=== PATIENT | female | born 1990 | race Caucasian/White ===

== ENCOUNTER 2017-04-24 15:19 | Observation (INO) | payer BC, OTHER ==
[2017-04-24] MEDS ORDERED: RINGERS SOLUTION,LACTATED 500 ML IV ONE (16:00)
[2017-04-24] MEDS ORDERED: SOD FERRIC GLUC COMPLX/SUCROSE 125 MG in SODIUM CHLORIDE 0.9% 100 ML IV ONE (16:00)
[2017-04-24] MEDS ORDERED: RINGERS SOLUTION,LACTATED 1,000 ML IV ONE (16:15)
[2017-04-24] MEDS ORDERED: PREN1TAB89 PO (17:18)
== END 2017-04-24 18:30 | disposition home or self-care (01) ==
LOC: 4S 15:28
PROVIDERS: ADMIT Specialist; ATTEND Specialist
DX: Z34.92 Encounter for supervision of normal pregnancy, unspecified, second trimester (principal); Z3A.22 22 weeks gestation of pregnancy
CPT/HCPCS: 59025; 96365; G0378; J2916; J7050; J7120

== ENCOUNTER 2017-04-26 10:05 | Observation (INO) | payer BC, OTHER ==
[~2017-04-26] VITALS: Ht 160 cm; Wt 68.0 kg
[~2017-04-26 10:05] MED LIST: PREN1TAB89 PO
[2017-04-26] MEDS ORDERED: SODIUM CHLORIDE 0.9% 500 ML IV ONE (10:45)
[2017-04-26] MEDS ORDERED: SOD FERRIC GLUC COMPLX/SUCROSE 125 MG in SODIUM CHLORIDE 0.9% 100 ML IV ONE (10:45)
[2017-04-26 10:54] VITALS: BP 95/51
[2017-04-26] MEDS ORDERED: SODIUM CHLORIDE 0.9% 1,000 ML IV SCH (11:00)
[2017-08-19] MEDS ORDERED: HYDR-309 PO (07:42)
[2017-08-19] MEDS ORDERED: FERR-89 PO (07:43)
[2017-08-19] MEDS ORDERED: IBUP-2071 PO (07:44)
[2017-08-19] MEDS ORDERED: DSS100 PO (07:44)
== END 2017-04-26 13:00 | disposition home or self-care (01) ==
LOC: 4S 10:05
PROVIDERS: ADMIT Specialist; ATTEND Specialist
DX: O99.012 Anemia complicating pregnancy, second trimester (principal); Z3A.22 22 weeks gestation of pregnancy
CPT/HCPCS: 59025; 96365; G0378; J2916; J7030; J7050; 96360; J7040

== ENCOUNTER 2017-06-19 15:00 | Observation (INO) | payer BC, OTHER ==
[~2017-06-19] VITALS: Ht 160 cm; Wt 70.8 kg
[2017-06-19] MEDS ORDERED: RINGERS SOLUTION,LACTATED 500 ML IV ONE (17:15)
[2017-06-19] MEDS ORDERED: SOD FERRIC GLUC COMPLX/SUCROSE 125 MG in SODIUM CHLORIDE 0.9% 100 ML IV ONE (17:15)
[2017-06-19 17:29] VITALS: BP 108/57
[2017-06-19 17:57] LABS: BASOPHILS % (AUTO) 0.3 % (0.0-2.0); EOSINOPHILS % (AUTO) 1.8 % (1.0-6.0); HEMATOCRIT 28.7 % (36-46); HEMOGLOBIN 9.9 g/dL (12.0-16.0); LYMPHOCYTES # (AUTO) 1.8 K/uL (1.0-4.8); MEAN CORPUSCULAR HEMOGLOBIN 30.4 pg (26.0-34.0); MEAN CORPUSCULAR HGB CONC 34.5 G/dL (31.0-37.0); MEAN CORPUSCULAR VOLUME 88 fL (80-100); MONOCYTES # (AUTO) 0.5 K/uL (0.1-1.0); MONOCYTES % (AUTO) 6.3 % (2.0-9.0); NEUTROPHILS # (AUTO) 5.3 K/uL (1.8-7.7); NEUTROPHILS % (AUTO) 68.6 % (40.0-70.0); RED BLOOD CELL COUNT(AUTO) 3.25 MIL/uL (4.00-5.20); RED CELL DISTRIBUTION WIDTH 17.4 % (11.5-14.5); WHITE BLOOD COUNT (AUTO) 7.8 K/uL (4.5-11.0)
[2017-06-19 18:40] LABS: RBC MORPHOLOGY COMMENT ABNORMAL RBC MORPH
[2017-08-19] MEDS ORDERED: HYDR-309 PO (07:42)
[2017-08-19] MEDS ORDERED: FERR-89 PO (07:43)
[2017-08-19] MEDS ORDERED: DSS100 PO (07:44)
[2017-08-19] MEDS ORDERED: IBUP-2071 PO (07:44)
== END 2017-06-19 17:45 | disposition home or self-care (01) ==
LOC: 4S 15:00
PROVIDERS: ADMIT Specialist; ATTEND Specialist
DX: O42.913 Preterm premature rupture of membranes, unspecified as to length of time between rupture and onset of labor, third trimester (principal); Z3A.30 30 weeks gestation of pregnancy
CPT/HCPCS: 36415; 59025; 76811; 85025; 89060; G0378; J2916; J7050

== ENCOUNTER 2017-06-23 11:07 | Observation (INO) | payer BC, OTHER ==
[~2017-06-23] VITALS: Ht 160 cm; Wt 71.2 kg
[2017-06-23] MEDS ORDERED: SOD FERRIC GLUC COMPLX/SUCROSE 125 MG in SODIUM CHLORIDE 0.9% 100 ML IV ONE (11:15)
[2017-06-23 11:20] VITALS: BP 101/57
[2017-06-23] MEDS ORDERED: RINGERS SOLUTION,LACTATED 1,000 ML IV ONE ×2 (11:24→11:30)
[2017-08-19] MEDS ORDERED: HYDR-309 PO (07:42)
[2017-08-19] MEDS ORDERED: FERR-89 PO (07:43)
[2017-08-19] MEDS ORDERED: IBUP-2071 PO (07:44)
[2017-08-19] MEDS ORDERED: DSS100 PO (07:44)
== END 2017-06-23 13:40 | disposition home or self-care (01) ==
LOC: 4S 11:07
PROVIDERS: ADMIT Specialist; ATTEND Specialist
DX: O23.43 Unspecified infection of urinary tract in pregnancy, third trimester (principal); Z3A.31 31 weeks gestation of pregnancy
CPT/HCPCS: 59025; 96361; 96365; G0378; J2916; J7050; J7120

== ENCOUNTER 2017-07-01 10:44 | Observation (INO) | payer BC, OTHER ==
[~2017-07-01] VITALS: Ht 160 cm; Wt 70.8 kg
[2017-07-01] MEDS ORDERED: ACETAMINOPHEN 325 MG TABLET PO ONE (11:00)
[2017-07-01] MEDS ORDERED: SOD FERRIC GLUC COMPLX/SUCROSE 125 MG in SODIUM CHLORIDE 0.9% 100 ML IV ONE (11:00)
[2017-07-01 13:10] LABS: BASOPHILS % (AUTO) 0.3 % (0.0-2.0); EOSINOPHILS % (AUTO) 1.2 % (1.0-6.0); HEMATOCRIT 30.1 % (36-46); HEMOGLOBIN 10.3 g/dL (12.0-16.0); LYMPHOCYTES # (AUTO) 1.6 K/uL (1.0-4.8); LYMPHOCYTES % (AUTO) 20.7 % (22.0-44.0); MEAN CORPUSCULAR HEMOGLOBIN 30.6 pg (26.0-34.0); MEAN CORPUSCULAR HGB CONC 34.2 G/dL (31.0-37.0); MEAN CORPUSCULAR VOLUME 89 fL (80-100); MONOCYTES # (AUTO) 0.5 K/uL (0.1-1.0); MONOCYTES % (AUTO) 6.1 % (2.0-9.0); NEUTROPHILS # (AUTO) 5.5 K/uL (1.8-7.7); NEUTROPHILS % (AUTO) 71.7 % (40.0-70.0); RED BLOOD CELL COUNT(AUTO) 3.36 MIL/uL (4.00-5.20); RED CELL DISTRIBUTION WIDTH 17.2 % (11.5-14.5); WHITE BLOOD COUNT (AUTO) 7.7 K/uL (4.5-11.0)
[2017-07-01 14:50] LABS: RBC MORPHOLOGY COMMENT ABNORMAL RBC MORPH
[2017-08-19] MEDS ORDERED: HYDR-309 PO (07:42)
[2017-08-19] MEDS ORDERED: FERR-89 PO (07:43)
[2017-08-19] MEDS ORDERED: DSS100 PO (07:44)
[2017-08-19] MEDS ORDERED: IBUP-2071 PO (07:44)
== END 2017-07-01 13:20 | disposition home or self-care (01) ==
LOC: 4S 10:44
PROVIDERS: ADMIT Specialist; ATTEND Specialist
DX: O26.893 Other specified pregnancy related conditions, third trimester (principal); R51 Headache; Z3A.32 32 weeks gestation of pregnancy
CPT/HCPCS: 36415; 59025; 85025; 87077; 87086; 87186; 96365; G0378; J2916; J7050

== ENCOUNTER 2017-07-04 12:04 | Observation (INO) | payer BC, OTHER ==
[~2017-07-04] VITALS: Ht 160 cm; Wt 71.7 kg
[2017-07-04] MEDS ORDERED: SOD FERRIC GLUC COMPLX/SUCROSE 125 MG in SODIUM CHLORIDE 0.9% 100 ML IV ONE (12:15)
[2017-07-04 12:26] VITALS: BP 97/52
[2017-07-04] MEDS ORDERED: RINGERS SOLUTION,LACTATED 1,000 ML IV ONE (13:00)
[2017-08-19] MEDS ORDERED: HYDR-309 PO (07:42)
[2017-08-19] MEDS ORDERED: FERR-89 PO (07:43)
[2017-08-19] MEDS ORDERED: DSS100 PO (07:44)
[2017-08-19] MEDS ORDERED: IBUP-2071 PO (07:44)
== END 2017-07-04 16:30 | disposition home or self-care (01) ==
LOC: 4S 12:04 → UNDOADMOB 12:10
PROVIDERS: ADMIT Specialist; ATTEND Specialist
DX: O99.513 Diseases of the respiratory system complicating pregnancy, third trimester (principal); R06.02 Shortness of breath; R07.89 Other chest pain; Z3A.32 32 weeks gestation of pregnancy
CPT/HCPCS: 59025; 96361; 96365; G0378; J2916; J7050; J7120

== ENCOUNTER 2017-08-11 14:00 | Observation (INO) | payer BC, OTHER ==
[~2017-08-11] VITALS: Ht 160 cm; Wt 74.4 kg
[2017-08-11 14:37] VITALS: BP 112/66
[2017-08-11 15:18] LABS: BASOPHILS % (AUTO) 0.5 % (0.0-2.0); EOSINOPHILS % (AUTO) 1.8 % (1.0-6.0); HEMATOCRIT 30.6 % (36-46); HEMOGLOBIN 10.6 g/dL (12.0-16.0); LYMPHOCYTES # (AUTO) 1.9 K/uL (1.0-4.8); LYMPHOCYTES % (AUTO) 23.6 % (22.0-44.0); MEAN CORPUSCULAR HEMOGLOBIN 31.5 pg (26.0-34.0); MEAN CORPUSCULAR HGB CONC 34.7 G/dL (31.0-37.0); MEAN CORPUSCULAR VOLUME 91 fL (80-100); MONOCYTES # (AUTO) 0.4 K/uL (0.1-1.0); MONOCYTES % (AUTO) 5.5 % (2.0-9.0); NEUTROPHILS # (AUTO) 5.5 K/uL (1.8-7.7); NEUTROPHILS % (AUTO) 68.6 % (40.0-70.0); PLATELET COUNT (AUTO)-OB 195 K/uL (150-450); RED BLOOD CELL COUNT(AUTO) 3.37 MIL/uL (4.00-5.20); RED CELL DISTRIBUTION WIDTH 14.3 % (11.5-14.5)
[2017-08-11] MEDS ORDERED: SOD FERRIC GLUC COMPLX/SUCROSE 125 MG in SODIUM CHLORIDE 0.9% 100 ML IV ONE (16:00)
[2017-08-11 18:52] LABS: APPEARANCE,URINE CLOUDY (CLEAR); BILIRUBIN,URINE NEGATIVE (NEGATIVE); GLUCOSE, URINE (UA) NEGATIVE (NEGATIVE); KETONES,URINE TRACE mg/dL (NEGATIVE); LEUKOCYTE ESTERASE ,URINE MODERATE (NEGATIVE); NITRATE,URINE NEGATIVE (NEGATIVE); OCCULT BLOOD,URINE NEGATIVE (NEGATIVE); PROTEIN,URINE TRACE (NEGATIVE)
[2017-08-11 19:22] LABS: RBC,URINE 0-2 /HPF (0-2)
[2017-08-11 19:23] LABS: BACTERIA,URINE Many /HPF (None Seen); SQUAMOUS EPITHELIAL CELL,UR Many /LPF (None Seen)
[2017-08-19] MEDS ORDERED: HYDR-309 PO (07:42)
[2017-08-19] MEDS ORDERED: FERR-89 PO (07:43)
[2017-08-19] MEDS ORDERED: DSS100 PO (07:44)
[2017-08-19] MEDS ORDERED: IBUP-2071 PO (07:44)
== END 2017-08-11 17:20 | disposition home or self-care (01) ==
LOC: 4S 14:00
PROVIDERS: ADMIT Specialist; ATTEND Specialist
DX: O26.893 Other specified pregnancy related conditions, third trimester (principal); M54.5 Low back pain; Z3A.38 38 weeks gestation of pregnancy
CPT/HCPCS: 36415; 59025; 81001; 85025; 87077; 87086; 87186; 96365; G0378; J2916; J7050